=== PATIENT | male | born 1990 | race Caucasian/White ===

== ENCOUNTER 2019-10-29 23:10 | Emergency (ER) | payer OTHER ==
[2019-10-29] MEDS ORDERED: Sodium Chloride 0.9% 10 ML Syringe FLUSH PRN (23:25)
[2019-10-29] MEDS ORDERED: Ondansetron 4 MG in Sodium Chloride 0.9% 100 ML IV ONE (23:25)
[2019-10-29] MEDS ORDERED: Ketorolac 30 MG/ML SDV IVPUSH ONE (23:25)
[2019-10-29] MEDS ORDERED: fentaNYL 100 MCG/2 ML SDV IVPUSH ONE (23:26)
[2019-10-29] MEDS ORDERED: Ondansetron 4 MG/2 ML SDV IVPUSH ONE (23:40)
[2019-10-30] MEDS ORDERED: Diphtheria,Pertussis(Acell),Tetanus Vaccine 0.5 ML Syringe IM ONE
--- NOTE | 2019-10-30 00:04 | EDM.PDOC ---
ED HPI GENERAL MEDICAL PROBLEM - General Chief Complaint: Burn Stated Complaint: Burn, left lower arm Time Seen by Provider: 10/29/19 23:15 Source of Information: Reports: Patient History Limitations: Reports: No Limitations - History of Present Illness INITIAL COMMENTS - FREE TEXT/NARRATIVE: Patient comes into the emergency department with complaints of a burn to the left wrist and forearm. Patient states just prior to arrival he was working on his radiator when the radiator fluid lid popped off causing a burn instantly to his left forearm. Patient presented emergency Department right after the incident. Prior to arrival a bystander did put peroxide on the wound. Patient denies any burn or injury to any other location on his body. Patient describes as a sharp shooting sensation. He denies any CMS or range of motion concerns. Patient does not feel that he is up-to-date on his tetanus Onset: Sudden Location: Reports: Upper Extremity, Left Quality: Reports: Sharp, Stabbing, Throbbing Severity: Mild Improves with: Reports: Immobilization, Rest Worsens with: Reports: Movement Associated Symptoms: Reports: No Other Symptoms - Related Data Allergies Allergy/AdvReac Type Severity Reaction Status Date / Time clindamycin Allergy Hives Verified 10/29/19 23:21 Home Meds: Home Meds . [Unable to Verify Home Med List] 10/29/19 [History] ED ROS GENERAL - Review of Systems Review Of Systems: See Below Constitutional: Reports: No Symptoms HEENT: Reports: No Symptoms Respiratory: Reports: No Symptoms Cardiovascular: Reports: No Symptoms GI/Abdominal: Reports: No Symptoms : Reports: No Symptoms Musculoskeletal: Reports: No Symptoms Neurological: Reports: No Symptoms Psychiatric: Reports: No Symptoms ED EXAM, GENERAL - Physical Exam Exam: See Below Exam Limited By: No Limitations General Appearance: Alert, WD/WN, No Apparent Distress Throat/Mouth: Normal Inspection, Normal Lips, Normal Teeth Head: Atraumatic, Normocephalic Neck: Normal Inspection, Supple, Non-Tender Respiratory/Chest: No Respiratory Distress, Lungs Clear, No Accessory Muscle Use , Chest Non-Tender Cardiovascular: Normal Peripheral Pulses, Regular Rate, Rhythm, No Edema Back Exam: Normal Inspection, Full Range of Motion Extremities: Normal Range of Motion, No Pedal Edema, Normal Capillary Refill, Other (left forearm- 2nd degree burn ) Course - Orders/Labs/Meds Orders: Active Orders 24 hr Category Date Time Status Vaccines to be Administered [RC] PER UNIT ROUTINE Care 10/30/19 00:00 Active Sodium Chloride 0.9% [Saline Flush] Med 10/29/19 23:25 Active 10 ml FLUSH ASDIRECTED PRN Peripheral IV Insertion Adult [OM.PC] Stat Oth 10/29/19 23:25 Ordered Medication Orders Sodium Chloride (Saline Flush) 10 ml FLUSH ASDIRECTED PRN PRN Reason: Keep Vein Open Meds: Medications Generic Name Dose Route Start Last Admin Trade Name Freq PRN Reason Stop Dose Admin Sodium Chloride 10 ml 10/29/19 23:25 Saline Flush FLUSH ASDIRECTED PRN Keep Vein Open Discontinued Medications Generic Name Dose Route Start Last Admin Trade Name Freq PRN Reason Stop Dose Admin Hydrocodone Bitart/Acetaminophen 1 packet 10/30/19 00:29 Take Home: Acetam/Hydrocodon 325-5 Mg, 5 Pack PO 10/30/19 00:30 ONETIME ONE Diphtheria/Tetanus/Acell Pertussis 0.5 ml 10/30/19 00:00 Adacel IM 10/30/19 00:01 .ONCE ONE Fentanyl 50 mcg 10/29/19 23:26 Sublimaze IVPUSH 10/29/19 23:27 ONETIME ONE Ondansetron HCl 4 mg/ Sodium 102 mls @ 400 mls/hr 10/29/19 23:25 Chloride IV 10/29/19 23:40 ONETIME ONE Ketorolac Tromethamine 30 mg 10/29/19 23:25 Toradol IVPUSH 10/29/19 23:26 ONETIME ONE Silver Sulfadiazine 1 gm 10/30/19 00:21 Silvadene 1% Cream 50 Gm TOP 10/30/19 00:22 ONETIME ONE Departure - Departure Time of Disposition: 12:30 Disposition: Home, Self-Care 01 Clinical Impression: 2nd deg burn arm Qualifiers: Encounter type: initial encounter Upper extremity location: wrist Laterality: left Qualified Code(s): T23.272A - Burn of second degree of left wrist, initial encounter First degree burn of arm Qualifiers: Encounter type: initial encounter Upper extremity location: forearm Laterality : left Qualified Code(s): T22.112A - Burn of first degree of left forearm, initial encounter - Discharge Information *PRESCRIPTION DRUG MONITORING PROGRAM REVIEWED*: Not Applicable *COPY OF PRESCRIPTION DRUG MONITORING REPORT IN PATIENT TRISHA: Not Applicable Instructions: Burn Care, Adult, [id number], Pain Medicine Instructions, Easy- to-Read, Second-Degree Burn, Adult Forms: ED Department Discharge, ED Return to Work/School Form Additional Instructions: 1. rest 2. apply ice to the area a minimum of 3-4 times a day in 20 minute intervals 3. Dressing changes should be complete 2 times a day 4. Keep the area covered and dry 5. Follow-up in the clinic within 3-4 days for evaluation and wound healing progression 6. [id number] medications can be taken to help with any pain and discomfort. Pain medication has been supplied this evening to help with severe breakthrough discomfort. It is advised to only take this medication for severe pain. Also advised to not drive or operate heavy machinery for the pain medication can alter your response time 7. Call with any questions or concerns Sepsis Event Note - Focused Exam Date Exam was Performed: 10/30/19 Time Exam was Performed: 01:17 - My Orders Last 24 Hours: My Active Orders 10/29/19 23:25 Sodium Chloride 0.9% [Saline Flush] 10 ml FLUSH ASDIRECTED PRN Peripheral IV Insertion Adult [OM.PC] Stat 10/30/19 00:00 Vaccines to be Administered [RC] PER UNIT ROUTINE - Assessment/Plan Last 24 Hours: My Active Orders 10/29/19 23:25 Sodium Chloride 0.9% [Saline Flush] 10 ml FLUSH ASDIRECTED PRN Peripheral IV Insertion Adult [OM.PC] Stat 10/30/19 00:00 Vaccines to be Administered [RC] PER UNIT ROUTINE Assessment:: 1. 2nd degree burn left forearm 2.0 % 2. 1st degree burn left forearm 2.5% Plan: 1. Cold water bath of left arm 2. Fentanyl, Zofran, and ketorlac for the pain and discomfort 3. Bacitracin applied over open skin area and Silvadene cream applied along with wound dressing 4. Tetanus updated 5. Education regarding wound care, OTC medications, activity, diet, and follow up care provided 6. Take all medications were provided to help with the pain and discomfort 7. All questions and concerns addressed prior to discharge.
[2019-10-30] MEDS ORDERED: Silver Sulfadiazine 1% Crm 50 GM Tube TOP ONE (00:21)
[2019-10-30] MEDS ORDERED: Take Home: Acetaminophen/HYDROcodone 325-5 MG, 5 Tab Pack PO ONE (00:29)
== END 2019-10-30 01:05 | disposition home or self-care (01) ==
LOC: VM.ED 23:10
DX: T23.272A Burn of second degree of left wrist, initial encounter (principal); T22.112A Burn of first degree of left forearm, initial encounter; Z23 Encounter for immunization; Z88.1 Allergy status to other antibiotic agents; X19.XXXA Contact with other heat and hot substances, initial encounter
CPT/HCPCS: 16020; 90471; 90715; 96374; 96375; 99283; A9270; J1885; J2405; J3010